=== PATIENT | male | born 1980 | race Caucasian/White ===

== ENCOUNTER 2021-03-09 07:55 | Outpatient (CLI) | payer OTHER, SELFPAY ==
--- NOTE | 2021-03-10 13:37 | WPDSLEEPSTUD ---
Sleep Study Date of Study: 03/09/21 Ordering Provider: Shoshana Garland MD Interpreting Physician: Michelle Lopez MD Sleep Study Type: Split Polysomnogram Height: 1.83 m Weight: 131.542 kg Body Mass Index: 39.3 Neck Circumference (inches): 19 [place]: 15 Reason for Sleep Study Waking up feeling tired no matter how much sleep, frequent nighttime awakening Sleep History John Worthy is a 40-year-old man who has complaints of waking up feeling tired no matter how much sleep he gets. He has difficulty staying asleep throughout the night and he has difficulty waking in the morning. He is excessively sleepy in the daytime. He constantly snores loudly. He occasionally awakens at night with heartburn, belching or coughing. Occasionally awakens from sleep feeling short of breath. He rarely has trouble sleeping with a cold. He occasionally wakes up gasping for breath at night. He frequently has breathing problems at night observed by others. He rarely sweats excessively at night. He occasionally notices his heart pounding or beating irregularly at night. He frequently falls asleep during the day, occasionally falls asleep involuntarily never falls asleep while driving. He does not have loss of muscle tone with strong emotion. He occasionally has daytime difficulties due to his excessive sleepiness. He does not feel paralyzed on waking or falling asleep. He occasionally has vivid dreamlike scenes upon awakening or falling asleep. He constantly feels afraid to go to sleep. He occasionally has nightmares. He occasionally remembers his dreams. He constantly has racing thoughts. He occasionally feels sad or depressed, frequently has anxiety. He frequently has muscular tension. He frequently notices parts his body jerking. He rarely kicks at night. He does not have crawling or aching feelings in his legs and does not have any kind of leg pain at night. He rarely has morning jaw pain. He occasionally grinds his teeth during sleep, occasionally is bothered by pain during the day. He rarely is awakened by pain at night. He constantly wakes up feeling stiff in the morning with sore achy muscles. He frequently wakes up with pain in the neck and spine. He has fatigue, palpitations, memory problems and stomach problems. Normal bedtime is 11:00 p.m. falling asleep within 5 minutes but sometimes taking up to 2 hours to fall asleep. He wakes up at least 3 times at night. He is awake awakenings are due to coughing, need to go to the bathroom, need to change position in bed and sometimes he eats at night. He wakes the morning at 6:00 a.m.. He estimates getting 7 hours of sleep at night. When he wakes at night he may stay awake between 5 and 10 minutes. He takes naps sometimes in the afternoon or evening. Sometimes a short nap may be refreshing and at other times it may not leave him feeling refreshed. He feels better in the afternoon and evening compared to the morning. He always has memory or concentration problems. He frequently has daytime sleepiness. He rarely awakens feeling refreshed. He reports losing weight during the last year. Habits: Tobacco 1 pack a day. He does consume caffeine. No alcohol or recreational drugs. [facility] Past Medical History Medical History (Updated 03/10/21 @ 14:33 by Michelle Lopez MD) Anxiety and depression Asthma Benign essential hypertension Coronary artery disease Dyskinesia of esophagus Esophageal reflux Nicotine dependence, unspecified, uncomplicated Obesity, unspecified STEMI (ST elevation myocardial infarction) Social History Social History Smoking packs per day: 1 Smoking cigarettes per day: 20.0 Years smoked: 25 Smoking pack-years: 25.00 Second hand tobacco smoke exposure: Yes Medications Home Medications Medication Instructions Recorded Confirmed Type atorvastatin 40 mg tablet 40 mg PO DAILY 01/08/1902/23
[2021-03-10 13:52] VITALS: BMI 39.3
== END 2021-03-10 07:28 | disposition home or self-care (01) ==
LOC: ANHCSM 07:57
PROVIDERS: PCP Family Medicine; Visit Provider Family Medicine
DX: G47.33 Obstructive sleep apnea (adult) (pediatric) (principal); Z45.02 Encounter for adjustment and management of automatic implantable cardiac defibrillator; E66.01 Morbid (severe) obesity due to excess calories; Z68.38 Body mass index [BMI] 38.0-38.9, adult; I25.10 Atherosclerotic heart disease of native coronary artery without angina pectoris; F17.200 Nicotine dependence, unspecified, uncomplicated; I10 Essential (primary) hypertension; F41.9 Anxiety disorder, unspecified; F32.A Depression, unspecified
CPT/HCPCS: 95811

== ENCOUNTER 2022-03-24 10:50 | Outpatient (CLI) | payer OTHER, SELFPAY ==
[2022-03-24 19:08] LABS: Alanine Aminotransferase 28 U/L (6-50); Albumin Level 4.3 g/dL (3.5-5.1); Alkaline Phosphatase 100 U/L (38-126); Anion Gap 6 mmol/L (8-16); Aspartate Amino Transferase 42 U/L (17-59); Bilirubin,Total 0.6 mg/dL (0.2-1.3); Blood Urea Nitrogen 9 mg/dL (9-20); Calcium 8.6 mg/dL (8.4-10.2); Carbon Dioxide 26 mmol/L (22-30); Chloride 106 mmol/L (98-107); Cholesterol 162 mg/dL (0-200); Estimated Glomerular Filt Rate > 60; Glucose 100 mg/dL (65-110); HDL Direct 24 mg/dL; Potassium 3.8 mmol/L (3.4-5.0); Sodium 138 mmol/L (137-145); Triglycerides 175 mg/dL (<150)
[2022-03-24 19:15] LABS: LDL Cholesterol Direct 84 mg/dL
[2022-03-24 20:06] LABS: Basophils Absolute Auto 0.1 K/mm3 (0.0-0.1); Basophils Percent Auto 0.7 % (0.2-1.2); Eosinophils Absolute Auto 0.2 K/mm3 (0-0.3); Eosinophils Percent Auto 1.6 % (0-4.4); Hematocrit 44.8 % (42.0-52.0); Hemoglobin 14.8 g/dL (14.0-18.0); Immature Granulocyte Absolute 0.04 K/mm3 (0.00-0.031); Immature Granulocyte Percent A 0.4 % (0-0.5); Lymphocytes Absolute Auto 2.31 K/mm3 (0.9-3.2); Lymphocytes Percent Auto 22.1 % (18.3-44.2); Mean Corpuscular Hemoglobin 30.5 pg (26-34); Mean Corpuscular Volume 92.2 fl (80-100); Mean Platelet Volume 10.1 fl (7.4-10.4); Monocytes Absolute Auto 0.6 K/mm3 (0.1-0.6); Monocytes Percent Auto 5.5 % (2.6-8.5); Neutrophils Absolute Auto 7.3 K/mm3 (1.3-6.7); Neutrophils Percent Auto 69.7 % (45.5-73.1); Platelet Count Result 313 k/mm3 (150-375); Red Blood Count 4.86 M/mm3 (4.6-6.20); Red Cell Distribution Width 14.1 % (11.5-14.5); White Blood Count 10.5 K/mm3 (4.5-10.0)
[2022-03-24 20:16] LABS: Hemoglobin A1C 5.2 % (<5.7)
== END 2022-03-24 10:51 | disposition home or self-care (01) ==
LOC: ANHGOSHLAB 10:53
PROVIDERS: PCP Family Medicine; Visit Provider Family Medicine
DX: I25.10 Atherosclerotic heart disease of native coronary artery without angina pectoris (principal); E66.01 Morbid (severe) obesity due to excess calories; G47.33 Obstructive sleep apnea (adult) (pediatric); Z68.38 Body mass index [BMI] 38.0-38.9, adult
CPT/HCPCS: 36415; 80053; 80061; 83036; 84443; 85025